=== PATIENT | female | born 1995 | race Two or more races ===

== ENCOUNTER 2025-02-02 10:29 | Outpatient (RCR) | payer MEDICAID, SELFPAY ==
--- NOTE | 2025-02-02 13:39 | PT.OIERPT ---
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 Pt has pain (7/10) with all activities. Pt has limitation with standing, walking, chores, self care, taking care of her kid, stairs, and performing recreational activities. Objective: Left Ankle AROM DF: neutral PF: 10 deg Inversion: 6 deg Eversion: neutral Left Ankle MMTs: grossly 3-/5 Left Hip MMTs: grossly 3-/5 Left HIp AROM: all motions are WFL SLS: 2 sec with increase ankle instability Gait Observation: antalgic gait Assessment: Pt demonstrate left ankle mobility and strength deficits leading to difficulty with ADLs. Pt will attempt physical therapy if pain persist Pt will be refer back to provider for further consultation. Short Term and Pressurised Container Filler Goals 1) Increase left ankle AROM WFL in 6 wks to be able to perform chrores 2) Decrease left ankle pain to 2/10 in 6 wks to be able to stand more than 30 mins 3) Increase left ankle MMTs grossly to 3+/5 in 6 wks to be able to perform stairs and steps 4) Increase left hip MMTs grossly to 3+/5 in 6 wks to be able to walk more than 30 mins 5) Increase SLS to 10 sec in 6 wks to be able to perfrom self carre activities 6) Indep with HEP Treatment Plan 1) Manual Therapy 2) Therapeutic Activities 3) Therapeutic Exercises 4) Modalities (ice, heat) 5) Balance Training 6) Gait Training Frequency and Duration: 2 x wk for 6 wks Certification Dates: 02/02/25 to 05/03/25 Procedure Charges OP PT Eval Mod Complex 30 minutes: Yes
--- NOTE | 2025-02-25 08:10 | PT.ODS1RPT ---
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 Pt no showed 02/09/25 appt and has been contact without success. At this time Pt will be d/c from care due to non-compliance per attendance policy. Pt did not meet set goals in therapy; thank you for your referrals
== END 2025-02-17 23:59 | disposition home or self-care (01) ==
LOC: CPTX 10:29
PROVIDERS: PCP Physician Assistant; Referring Provider Physician Assistant; Visit Provider Physician Assistant
DX: M25.572 Pain in left ankle and joints of left foot (principal); M25.672 Stiffness of left ankle, not elsewhere classified; R26.2 Difficulty in walking, not elsewhere classified; Q66.89 Other specified congenital deformities of feet
CPT/HCPCS: 97162